=== PATIENT | male | born 1935 | race Caucasian/White ===

== ENCOUNTER 2016-07-25 06:46 | Day surgery (SDC) | payer OTHER, BC ==
[~2016-07-25] VITALS: Ht 182.9 cm; Wt 66.5 kg
[~2016-07-25 06:46] MED LIST: ATIVAN1 MG PO; LEVOXYL75 MCG PO; LISINOPRIL10 MG PO; METAMUCIL0.4 GM PO; METFORMIN HCL500 M4 PO; METFORMIN HCL500 MG PO; METOPROLOL SUCC25 MG PO; MIRALAX17 GM PO; NASONEX17 GM BOTH NARES
[2016-07-25 08:25] LABS: POINT-OF-CARE METER ID UU13113696
[2016-07-25 10:48] LABS: POINT-OF-CARE METER ID UU13113819; POINT-OF-CARE USER ID 515036437
[2016-07-25 21:00] VITALS: BP 163/92
[2016-07-25 23:58] VITALS: BP 143/100
[2016-07-26 04:00] VITALS: BP 162/88
[2016-07-26 06:24] LABS: BASOPHIL COUNT 0.1 K/uL (0-0.1); EOSINOPHIL (%) 0.9 % (0-5); EOSINOPHIL COUNT 0.1 K/uL (0-0.3); HEMATOCRIT 46.1 % (38.0-50.0); IMMATURE GRANULOCYTE (%) 0.3 % (0.0-0.7); INSTRUMENT ABS NEUTROPHIL CT 7.7 K/uL; LYMPHOCYTE COUNT 2.3 K/uL (1.0-2.8); MCH 30.7 PG (29.0-34.0); MCHC 35.1 G/DL (30.0-36.0); MCV 87.5 FL (86-99); MONOCYTE (%) 10.6 % (3-12); MONOCYTE COUNT 1.2 K/uL (0-0.8); NEUTROPHIL (%) 67.4 % (45-76); NEUTROPHIL COUNT 7.7 K/uL (1.8-6.4); PLATELET COUNT 240 K/uL (156-360); RBC DIS.WIDTH-CV 12.7 % (11.8-14.6); RED BLOOD COUNT 5.27 M/uL (4.00-5.50); WHITE BLOOD COUNT 11.4 K/uL (4.1-10.2)
[2016-07-26 06:50] VITALS: BP 175/93
[2016-07-26 06:52] LABS: ANION GAP 11 MEQ/L (2-14); CHLORIDE 95 MEQ/L (99-109); GFR ESTIMATE (CALCULATED) > 59 mL/min/; GLUCOSE 140 mg/dL (70-99); POTASSIUM 3.9 MEQ/L (3.7-5.4); SAMPLE HEMOLYSIS CHECK 0; SAMPLE ICTERIC CHECK 0; SAMPLE LIPEMIA CHECK 0; SODIUM 132 MEQ/L (136-147); UREA NITROGEN (BUN) 11 mg/dL (9-23)
[2016-07-26 10:38] VITALS: BP 129/76
[2016-07-26] MEDS ORDERED: CLOPIDOGREL75 MG PO (14:39)
[2016-07-26] MEDS ORDERED: ASPIR-LOW81 MG PO (14:40)
[2016-07-26] MEDS ORDERED: NITROSTAT0.4 MG SL (14:41)
== END 2016-07-26 16:17 | disposition home or self-care (01) ==
LOC: CATH 06:46 → 2SOUTH 10:00 → 4EAST 10:00
PROVIDERS: Internal Medicine Cardiovascular Disease
DX: I25.110 Atherosclerotic heart disease of native coronary artery with unstable angina pectoris (principal); I11.9 Hypertensive heart disease without heart failure; E11.9 Type 2 diabetes mellitus without complications; Z79.84 Long term (current) use of oral hypoglycemic drugs; F41.9 Anxiety disorder, unspecified; E78.5 Hyperlipidemia, unspecified; Z88.1 Allergy status to other antibiotic agents; Z88.2 Allergy status to sulfonamides; Z88.6 Allergy status to analgesic agent
CPT/HCPCS: 80048; 82948; 85025; 85347; 93005; C1725; C1769; C1874; C1887; G0378; J0153; J1644; J2250; J2270; J3010; J7050